=== PATIENT | male | born 1995 | race Caucasian/White ===

== ENCOUNTER 2022-04-14 23:59 | Emergency (ER) | payer SELFPAY ==
[~2022-04-14] VITALS: Ht 167.6 cm; Wt 73.0 kg
[2022-04-15] MEDS ORDERED: KETOROLAC 30MG/ML VIAL IM ONE (01:15)
[2022-04-15 01:29] VITALS: BP 160/90
== END 2022-04-15 02:25 | disposition home or self-care (01) ==
LOC: ER 23:59
DX: S43.492A Other sprain of left shoulder joint, initial encounter (principal); V49.59XA Passenger injured in collision with other motor vehicles in traffic accident, initial encounter; Y93.89 Activity, other specified; Y92.89 Other specified places as the place of occurrence of the external cause; Y99.8 Other external cause status
CPT/HCPCS: 73030; 96372; 99283; J1885